=== PATIENT | male | born 1975 | race Hispanic/Latino ===

== ENCOUNTER 2017-10-29 22:31 | Emergency (ER) | payer OTHER ==
[2017-10-29 22:42] VITALS: BP 146/80; PULSE 94; RESP 18; TEMP 98.2; O2SAT 98
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
== END 2017-10-29 23:00 | disposition home or self-care (01) ==
LOC: H.ER 22:31
DX: Z77.21 Contact with and (suspected) exposure to potentially hazardous body fluids (principal); Y99.0 Civilian activity done for income or pay

== ENCOUNTER 2017-11-05 21:25 | Emergency (ER) | payer OTHER ==
[2017-11-05 21:35] VITALS: BP 148/98; PULSE 89; RESP 18; TEMP 98.3; O2SAT 100
--- NOTE | 2017-11-05 21:41 | ED PDOC ---
Lower Extremity Pain/Injury Time Seen by Provider: 11/05/17 21:27 Chief Complaint (Nursing): Lower Extremity Problem/Injury Chief Complaint (Provider): Left Foot Pain History Per: Patient History/Exam Limitations: no limitations Onset/Duration Of Symptoms: Days (x1) Current Symptoms Are (Timing): Still Present Additional Complaint(s): 42-year-old male presenting for evaluation of left foot injury prior to arrival. Patient states he was at work when a kirsten fell on his left foot. He reports localized pain and denies any numbness or tingling. He also denies taking any medication for pain prior to arrival. Past Medical History Reviewed: Historical Data, Nursing Documentation, Vital Signs Vital Signs: Last Vital Signs Temp 98.3 F 11/05/17 21:33 Pulse 89 11/05/17 21:33 Resp 18 11/05/17 21:33 BP 148/98 H 11/05/17 21:33 Pulse Ox 100 11/05/17 21:33 - Medical History PMH: No Chronic Diseases - Surgical History Surgical History: No Surg Hx - Family History Family History: States: Unknown Family Hx - Allergies Allergies/Adverse Reactions: Allergies Allergy/AdvReac Type Severity Reaction Status Date / Time No Known Allergies Allergy Verified 11/05/17 21:33 Review of Systems ROS Statement: Except As Marked, All Systems Reviewed And Found Negative Musculoskeletal: Positive for: Foot Pain (left) Neurological: Negative for: Numbness Physical Exam - Reviewed Nursing Documentation Reviewed: Yes Vital Signs Reviewed: Yes - Physical Exam Appears: Positive for: Non-toxic, No Acute Distress Head Exam: Positive for: ATRAUMATIC Skin: Positive for: Normal Color, Warm Eye Exam: Positive for: Normal appearance Neck: Positive for: Normal Respiratory: Negative for: Respiratory Distress Extremity: Positive for: Other (tender erythematous area over the intermediate cuneiform, no other bony tenderness, sensation intact, capillary refill intact ) Neurologic/Psych: Positive for: Alert - ECG O2 Sat by Pulse Oximetry: 100 Medical Decision Making Medical Decision Making: Plan: -Left foot 3rd digit x-ray No acute fracture or dislocation on XR. Motrin given in ER. Scribe Attestation: Documented by Mitesh Doran, acting as a scribe for Lindy Colmenares PA-C. Provider Scribe Attestation: All medical record entries made by the scribe were at my direction and personally dictated by me. I have reviewed the chart and agree that the record accurately reflects my personal performance of the history, physical exam, medical decision making, and the department course for this patient. I have also personally directed, reviewed, and agree with the discharge instructions and disposition. Disposition - Clinical Impression Clinical Impression: Foot injury - Patient ED Disposition Is Patient to be Admitted: No Counseled Patient/Family Regarding: Diagnosis, Need For Followup - Disposition Referrals: Wayne Carter DPM [Staff Provider] - Disposition: Routine/Home Disposition Time: 21:52 Condition: STABLE Instructions: Contusion (DC) Forms: [employer] (Turkish)
--- NOTE | 2017-11-06 08:59 | RAD ---
Date of service: 11/05/2017 PROCEDURE: Left Foot Radiographs. HISTORY: contusion, crush injury, mid foot COMPARISON: None. FINDINGS: BONES: Bone alignment and mineralization are normal. There is no acute displaced fracture or bone destruction. JOINTS: Normal. SOFT TISSUES: Normal. OTHER FINDINGS: None. IMPRESSION: No acute fracture or dislocation.
== END 2017-11-05 22:33 | disposition home or self-care (01) ==
LOC: H.ER 21:25
DX: S99.922A Unspecified injury of left foot, initial encounter (principal); W23.0XXA Caught, crushed, jammed, or pinched between moving objects, initial encounter; Y99.0 Civilian activity done for income or pay